=== PATIENT | female | born 1955 | race Two or more races ===

== ENCOUNTER → 2024-10-27 | Outpatient (CLI) | payer MEDICAID, SELFPAY ==
--- NOTE | 2024-10-27 | XR_ITS ---
Examination: Bone densitometry Date and time of exam:October 27, 2024 0839 hrs. Indications: Hysterectomy age 44, history postmenopausal lower leg fracture 3 years ago Technique: Lumbar spine and hip total bone mineralization values of an calculated. Peak reference and age match control results have been displayed. Findings: Lumbar spine total bone mineralization is1.057 gm/cm2. This is 0.1 standard deviations above peak reference. This is 2.1 standard deviations above age-matched controls. Hip total bone mineralization is 0.827 gm/cm2 This is 1.0 standard deviations below peak reference. This is 0.3 standard deviations above age-matched controls Impression: There is normal mineralization based on lumbar spine measurements. There is osteopenia based on hip measurements
== END | disposition home or self-care (01) ==
LOC: CDIM 07:59
PROVIDERS: Referring Provider Nurse Practitioner Family; Visit Provider Nurse Practitioner Family
DX: Z13.820 Encounter for screening for osteoporosis (principal); M85.88 Other specified disorders of bone density and structure, other site
CPT/HCPCS: 77080

== ENCOUNTER 2025-02-12 11:44 | Emergency (ER) | payer MEDICAID, SELFPAY ==
[2025-02-12 11:52] VITALS: BP 147/77; PULSE 83; RESP 18; TEMP 36.9; O2SAT 96
--- NOTE | 2025-02-12 11:58 | XR_ITS ---
Examination: CT abdomen and pelvis without contrast. Coronal 3-D reconstructions. Sagittal 2-D reconstructions. Date and time of exam:February 12, 2025 1203 hours INDICATIONS: Generalized abdominal pain and nausea 8 days CTDI: vol (mGy): 14.4 DLP: (mGycm): 728 Technique: Axial images of the abdomen have been obtained, 3 mm slice thickness Intravenous contrast material has not been administered. Low dose protocols were performed. One or more of the following dose reduction techniques were used; automated exposure control, adjustment of the mA and/or KV according to patient size, use of iterative reconstruction technique. Findings: No focal liver or splenic lesion Suspicious for small gallstones No pancreatic or adrenal mass No renal or ureteral calculi Aorta normal size No bowel obstruction 4 mm fat-containing umbilical hernia Normal appendix No diverticulitis Absent uterus No pelvic mass Urinary bladder intact Moderate osteopenia IMPRESSION: Recommend hepatobiliary sonography to exclude cholelithiasis Normal appendix No bowel obstruction diverticulitis or free air
--- NOTE | 2025-02-12 11:58 | PD.EDRME ---
Rapid Medical Screening Exam RME Arrival date/time: 02/12/25 11:44 69-year-old female presents to the emergency department today complaints of abdominal pain and diarrhea ongoing x 1 week Chief Complaint: Abdominal Pain Time Seen by Provider: 02/12/25 11:58 Vital signs: Vital Signs Temperature 98.5 F 02/12/25 11:52 Pulse Rate 83 02/12/25 11:52 Respiratory Rate 18 02/12/25 11:52 Blood Pressure 147/77 H 02/12/25 11:52 Pulse Oximetry (%) 96 02/12/25 11:52 Oxygen Delivery Method Room Air 02/12/25 11:52
[2025-02-12 12:35] LABS: Basophils % (Auto) 1 % (0-2.5); Eosinophils # (Auto) 0.2 Thou/mm3 (0.0-0.5); Eosinophils % (Auto) 2 % (0-10); Hematocrit 40.6 % (36.0-46.0); Hemoglobin 13.5 g/dL (12.0-16.0); Immature Granulocytes % (Auto) 1 % (0-0); Immature Granulocytes Auto 0.03 Thou/mm3 (0.00-0.00); Lymphocytes # (Auto) 2.4 Thou/mm3 (1.0-4.8); Lymphocytes % (Auto) 39 % (10-50); Mean Corpuscular HGB Conc 33.3 g/dl (31.0-37.0); Mean Corpuscular Hemoglobin 28.6 pg (25.0-35.0); Mean Corpuscular Volume 86 fL (80-100); Monocytes # (Auto) 0.2 Thou/mm3 (0.0-0.8); Monocytes % (Auto) 4 % (0-12); Neutrophils # (Auto) 3.4 Thou/mm3 (1.8-7.7); Neutrophils % (Auto) 54 % (37-80); Nucleated Red Blood Cell % 0 /100 WBC (0); Platelet Count 345 Thou/mm3 (140-440); RDW Standard Deviation 41.2 fL (36.4-46.3); Red Blood Count 4.72 Miln/mm3 (4.00-5.20); White Blood Count 6.2 Thou/mm3 (3.6-11.0)
[2025-02-12 12:53] LABS: Alanine Aminotransferase 36 U/L (10-49); Albumin, Serum 4.2 gm/dL (3.4-4.8); Albumin/Globulin Ratio 1.4 (1.2-2.2); Alkaline Phosphatase 101 U/L (46-116); Anion Gap 7 (7-16); Aspartate Amino Transferase 37 U/L (0-34); BUN/Creatinine Ratio 15 Ratio (12-20); Bilirubin,Total 0.3 mg/dL (0.3-1.2); Blood Urea Nitrogen 9 mg/dL (9-23); Calcium 8.8 mg/dL (8.3-10.6); Calcium (Corrected) 8.8 mg/dL (8.5-10.1); Carbon Dioxide 25.5 mMol/L (20.0-31.0); Chloride 108 mMol/L (98-107); Creatinine (Component) 0.6 mg/dL (0.6-1.3); Globulin 3.1 gm/dL (2.3-3.5); Glucose 112 mg/dL (74-106); Lipase 29 U/L (12-53); Osmolality,Calculated 279 (275-295); Potassium 3.8 mMol/L (3.4-5.1); Sodium 140 mMol/L (136-145); Total Protein 7.3 gm/dL (5.7-8.2); eGFR > 60 See Note
[2025-02-12 13:25] LABS: Collection Type, Urine Clean Catch; WBC,Urine 0 /hpf (0-5)
[2025-02-12 13:49] LABS: Bilirubin,Urine Negative (Negative); Blood,Urine Negative (Negative); Clarity,Urine Clear (Clear/Hazy); Color,Urine Lt-Yellow (Lt Yel-Yel); Culture Indicated,Urine Not Indicated; Glucose, Urine Negative (Negative); Ketones,Urine Negative (Negative); Leukocyte Esterase,Urine Negative (Negative); Nitrite,Urine Negative (Negative); PH,Urine 6.5 (5.0-7.0); Protein,Urine Negative (Neg - Trace); RBC,Urine < 1 /hpf (0-3); Specific Gravity,Urine 1.004 (1.001-1.035); Squamous Epithelial Cell,Urine 1 /hpf (0-5); Urobilinogen,Urine Negative mg/dL (0.0-1.0)
--- NOTE | 2025-02-12 15:00 | EDNOTE_ITS ---
ED Abdominal Pain RME/HPI General Chief Complaint: Abdominal Pain Stated complaint: ABDOMINAL PAIN/DIARRHEA X1 WEEK Time seen by provider: 02/12/25 11:58 Arrival date/time: 02/12/25 11:44 RME / HPI RME / HPI narrative: 69-year-old female patient with no significant medical history, came in for evaluation regarding diarrhea. Patient has been having diarrhea for at least 1 week, described as nonbloody none foul-smelling, severity moderate. Patient also complained of abdominal cramping. Denies any vomiting denies any fever denies any travel outside the [place] denies any ill contacts no medications taken prior to arrival. Related Data Previous Rx's ?Medication ?Instructions ?Recorded dicyclomine 20 mg tablet 20 mg PO TID PRN abdominal p ain 02/12/25 #30 tabs Allergies Allergy/AdvReac Type Severity Reaction Status Date / Time No Known Allergies Allergy Verified 02/12/25 11:47 Review of Systems Review of Systems Narrative Review of Systems: Review of system reviewed and within normal limits except mentioned in HPI ED Exam Narrative Physical exam: VITAL SIGNS: Reviewed. GENERAL APPEARANCE: Alert and interactive, follows commands, no acute distress, HEAD AND FACE: Non-traumatic. ENT: PERRL, pink conjunctivitis, eyelid no trauma, Mucous membrane moist. NECK: Supple, nontender, no nuchal rigidity. CHEST: No tenderness, no crepitus, no paradoxical movement, no retractions. LUNGS: Clear, well ventilated, symmetric, no rales, no wheezing, no ronchi, no stridor, good breath sounds bilaterally. HEART: Regular rate, regular rhythm, no murmur, no gallops. ABDOMEN: Soft, positive bowel sounds, nondistended, no guarding, nontender, no rebound, no masses, RECTAL: Deferred. GENITAL: Deferred. NEUROLOGICAL: Gross motor function intact sensory function intact, Appropriate for age. MUSCULOSKELETAL: low back nontender, full range of motion. EXTREMITIES: Nontender, full range of motion. SKIN: Color pink, dry, no rash, no lacerations, no abrasions, no contusions. LYMPHATICS: Deferred. Course Quality Measures none Orders Category Date Time Status CT abdomen pelvis wo con Stat Exams 02/12/25 11:58 Completed CBC Stat Lab 02/12/25 12:19 Completed Comprehensive Metabolic Panel Stat Lab 02/12/25 12:19 Completed Lipase Stat Lab 02/12/25 12:19 Completed Stool Culture Stat Lab 02/12/25 13:05 Ordered Stool for WBCs Stat Lab 02/12/25 13:05 Ordered UA, C/S IF [Urinalysis, C/S if Indicated] Stat Lab 02/12/25 13:04 Completed c diff [Clostridium Difficile PCR] Stat Lab 02/12/25 Ordered Vital Signs Vital signs: Vital Signs Temperature 98.5 F 02/12/25 11:52 Pulse Rate 83 02/12/25 11:52 Respiratory Rate 18 02/12/25 11:52 Blood Pressure 147/77 H 02/12/25 11:52 Pulse Oximetry (%) 96 02/12/25 11:52 Oxygen Delivery Method Room Air 02/12/25 11:52 Abdominal Pain MDM MDM Narrative MDM Narrative:: 69-year-old female patient with no significant medical history, came in for evaluation regarding diarrhea. Patient has been having diarrhea for at least 1 week, described as nonbloody none foul-smelling, severity moderate. Patient also complained of abdominal cramping. Denies any vomiting denies any fever denies any travel outside the [place] denies any ill contacts no medications taken prior to arrival. Patient is unable to give us a stool sample in the emergency room. Patient's workup today all came back unremarkable CBC no leukocytosis LFTs normal uri nalysis no UTI CT scan of the abdomen pelvis also came back unremarkable. Patient appears nontoxic and hemodynamically stable. Patient discharged home and instructed to follow-up with primary care provider in 24 to 48 hours. Instructed to return to the emergency department immediately if worsening of symptoms Patient data External records reviewed:: None Clinical information provided by:: patient Social determinants that could affect healthcare access:: none Patient has the following chronic illnesses:: None How is presenting disease/condition affected by chronic disease/condition?: no chronic disease Evaluation data The following diagnostics were reviewed and interpreted by me:: lab results and radiology exam(s) Lab and/or radiology exams considered but not ordered:: None Interpretation Summary: None Medications / Prescriptions Medications or Prescriptions considered but not ordered:: None Medication administrations:: None Consultations Consultation(s) initiated? (list below): No Diagnosis Differential diagnosis abdominal pain: abdominal pain, gastroenteritis and small bowel obstruction Most likely diagnosis given after review of the tests above:: Gastroenteritis Admission Indicated Admission indicated?: not indicated Admission Request Was there a request for admission?: No Disposition Plan Disposition Plan: Discharge Discharge Attestation Discharge Attestation: The patient WAS given an opportunity to ask questions and understood the discharge instructions. Discharge instructions specifically effects, indications for sooner follow up or return to the emergency department, and the expected course of current diagnosis. Patient condition: Stable Discharge Plan Plan Patient Disposition: HOME (Self Care) Disposition Comment: stABLE Prescriptions/Referrals Prescriptions/Med Rec: New dicyclomine 20 mg tablet 20 mg PO TID PRN (Reason: abdominal pain) Qty: 30 0RF Referrals: Flavio Cherry MD [Primary Care Provider] - In 1 week Problem List Clinical Impression: Gastroenteritis Patient/Caregiver Discharge Instructions Discharge Activity: activity as tolerated Education Materials: How the Colon Works Additional Instructions: Thank you for the opportunity for serving you today. You are stable for discharged . You are advised to: Follow-up with your PCP in 1 to 2 days Return to ED for worsening of symptoms Increase oral fluids Take medication as prescribed Print Language: Kinyarwanda Stand Alone Forms: Maryanne Award Info., Patient Portal Info Letter
== END 2025-02-12 16:09 | disposition home or self-care (01) ==
PROVIDERS: Nurse Practitioner Primary Care; Emergency Provider Emergency Medicine; PCP Family Medicine
DX: K52.9 Noninfective gastroenteritis and colitis, unspecified (principal)
CPT/HCPCS: 36415; 74176; 80053; 81001; 83690; 85025; 87015; 87045; 87046; 87205; 87493; 87899; 99284